=== PATIENT | female | born 1955 | race Caucasian/White ===

== ENCOUNTER 2020-07-30 13:14 | Emergency (ER) | payer OTHER ==
[2020-07-30 13:23] VITALS: BP 127/82; PULSE 83; TEMP 99.4; BMI 23.8
== END 2020-07-30 14:50 | disposition home or self-care (01) ==
LOC: FER 13:14
DX: S69.92XA Unspecified injury of left wrist, hand and finger(s), initial encounter (principal); S52.502A Unspecified fracture of the lower end of left radius, initial encounter for closed fracture; S52.602A Unspecified fracture of lower end of left ulna, initial encounter for closed fracture
CPT/HCPCS: 73090-TC-LT-FY; 73110-TC-LT-FY; 73130-TC-LT-FY; 99284-25

== ENCOUNTER 2024-04-17 10:37 | Emergency (ER) | payer OTHER, MEDICARE ==
[2024-04-17 10:49] VITALS: BP 128/74; PULSE 67; RESP 16; TEMP 98.4; BMI 23.8
== END 2024-04-17 12:00 | disposition home or self-care (01) ==
LOC: FER 10:37
DX: S93.601A Unspecified sprain of right foot, initial encounter (principal); X50.1XXA Overexertion from prolonged static or awkward postures, initial encounter; Y92.512 Supermarket, store or market as the place of occurrence of the external cause
CPT/HCPCS: 73630-TC-RT-FY; 99283-25